=== PATIENT | female | born 1960 | race Hispanic/Latino ===

== ENCOUNTER 2021-01-12 13:02 | Outpatient (CLI) | payer BC | END 2021-01-12 13:03 | disposition home or self-care (01) | LOC: CSHMAMMO 13:02 | PROVIDERS: ATTEND Family Medicine | DX: Z12.31 Encounter for screening mammogram for malignant neoplasm of breast (principal); Z13.820 Encounter for screening for osteoporosis; M81.0 Age-related osteoporosis without current pathological fracture | CPT/HCPCS: 77063; 77067; 77080 ==